=== PATIENT | male | born 1955 | race Caucasian/White ===

== ENCOUNTER → 2023-11-24 06:56 | Outpatient (REF) | payer OTHER, SELFPAY | LOC: RCS 06:56 | PROVIDERS: ATTENDING PHYSICIAN Internal Medicine Cardiovascular Disease; FAMILY PHYSICIAN Internal Medicine | DX: R07.89 Other chest pain (principal) | CPT/HCPCS: 93306 ==

== ENCOUNTER → 2023-11-25 08:19 | Outpatient (REF) | payer OTHER, SELFPAY | LOC: DHCBC/DCA 08:19 | PROVIDERS: ATTENDING PHYSICIAN Internal Medicine Cardiovascular Disease | DX: R07.89 Other chest pain (principal) | CPT/HCPCS: 78452; 93017; A9500 ==